=== PATIENT | female | born 2000 | race Caucasian/White ===

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

== ENCOUNTER 2019-09-26 14:01 | Emergency (ER) | payer MEDICAID ==
[2019-09-26 14:22] VITALS: BP 112/45; PULSE 80
--- NOTE | 2019-09-26 14:24 | EDM.PDOC ---
<Estefania Clifford - Last Filed: 09/26/19 14:24> ED HPI GENERAL MEDICAL PROBLEM - General Chief Complaint: Neck Problem Stated Complaint: KNOT BEHIND HEAD Time Seen by Provider: 09/26/19 14:24 neck Pain Score (Numeric/FACES): 8 - Related Data Allergies Allergy/AdvReac Type Severity Reaction Status Date / Time No Known Allergies Allergy Verified 10/09/16 22:52 Home Meds: Home Meds Etonogestrel [Nexplanon] 09/26/19 [History] Past Medical History HEENT History: Reports: None Cardiovascular History: Reports: None Respiratory History: Reports: None Gastrointestinal History: Reports: None Genitourinary History: Reports: None [employer] RO[employer] History: Reports: None Musculoskeletal History: Reports: None Neurological History: Reports: None Psychiatric History: Reports: None Endocrine/Metabolic History: Reports: None Hematologic History: Reports: None Immunologic History: Reports: None Oncologic (Cancer) History: Reports: None Dermatologic History: Reports: None - Infectious Disease History Infectious Disease History: Reports: None Social & Family History - Family History Family Medical History: Noncontributory - Caffeine Use Caffeine Use: Reports: None Course - Vital Signs Last Recorded V/S: Last Vital Signs Temp 97.6 F 09/26/19 14:19 Pulse 80 09/26/19 14:19 Resp 15 09/26/19 14:19 BP 112/45 L 09/26/19 14:19 Pulse Ox 99 09/26/19 14:19 Departure - Departure Disposition: Home, Self-Care 01 Clinical Impression: Muscle spasm - Discharge Information Referrals: Mell Mathis, CORN HUSK BALER [Primary Care Provider] - Forms: ED Department Discharge Additional Instructions: Patient is prescribed Return if symptoms persist or worsen Follow-up with primary care in 2 weeks sooner as needed [facility] - Primary Care [address] [place] [address] The following information is given to patients seen in the emergency department who are being discharged to home. This information is to outline your options for follow-up care. We provide all patients seen in our emergency department with a follow-up referral. The need for follow-up, as well as the timing and circumstances, are variable depending upon the specifics of your emergency department visit. If you don't have a primary care physician on staff, we will provide you with a referral. We always advise you to contact your personal physician following an emergency department visit to inform them of the circumstance of the visit and for follow-up with them and/or the need for any referrals to a consulting specialist. The emergency department will also refer you to a specialist when appropriate. This referral assures that you have the opportunity for follow-up care with a specialist. All of these measure are taken in an effort to provide you with optimal care, which includes your follow-up. Under all circumstances we always encourage you to contact your private physician who remains a resource for coordinating your care. When calling for follow-up care, please make the office aware that this follow-up is from your recent emergency room visit. If for any reason you are refused follow-up, please contact the [facility] emergency department at and asked to speak to the emergency department charge nurse. Sepsis Event Note - Evaluation Sepsis Screening Result: No Definite Risk - Focused Exam Vital Signs: Vital Signs Temp Pulse Resp BP Pulse Ox 09/26/19 14:19 97.6 F 80 15 112/45 L 99 Date Exam was Performed: 09/26/19 Time Exam was Performed: 14:24 <Darrin Isaacs - Last Filed: 09/26/19 14:34> ED HPI GENERAL MEDICAL PROBLEM - General Source of Information: Reports: Patient - History of Present Illness INITIAL COMMENTS - FREE TEXT/NARRATIVE: HISTORY AND PHYSICAL: History of present illness: [Presents with muscle pain in the neck in a left trapezius distribution extending from occipital area down to the shoulder can reproduce symptoms with palpation in this distribution as well as I do appreciate spasm pain is worsened by vertical movement as well as turning to the left on the horizontal plane rates pain 5 out of 10 nonradiating pain is been present for 2 months she has not tried any treatments or been seen by her primary at this point, as lesion is appreciated there is no redness warmth or open lesion no bruising, febrile point tenderness on cervical spine I did talk to her about possible trigger point injection with primary or referral for such and possibility of physical therapy at this point as it is been 2 months we will start with anti-inflammatories and a muscle relaxant and redirect from there] Denies any injury or trauma this began insidiously Review of systems: As per history of present illness and below otherwise all systems reviewed and negative. Past medical history: As per history of present illness and as reviewed below otherwise noncontributory. Surgical history: As per history of present illness and as reviewed below otherwise noncontributory. Social history: No reported history of drug or alcohol abuse. Family history: As per history of present illness and as reviewed below otherwise noncontributory. Physical exam: HEENT: Atraumatic, normocephalic, pupils reactive, negative for conjunctival pallor or scleral icterus, mucous membranes moist, throat clear, neck supple, nontender, trachea midline. Lungs: Clear to auscultation, breath sounds equal bilaterally, chest nontender. Heart: S1S2, regular, negative for clicks, rubs, or JVD. Abdomen: Soft, nondistended, nontender. Negative for masses or hepatosplenomegaly. Negative for costovertebral tenderness. Pelvis: Stable nontender. Genitourinary: Deferred. Rectal: Deferred. Extremities: Atraumatic, negative for cords or calf pain. Neurovascular unremarkable. Neuro: Awake, alert, oriented. Cranial nerves II through XII unremarkable. Cerebellum unremarkable. Motor and sensory unremarkable throughout. Exam nonfocal. Skeletal/musculo-HPI otherwise unremarkable Diagnostics: [clinical Therapeutics: [toradol Flexeril Follow-up with primary care Consider trigger point injection and/or physical therapy ] Heat whichever gains most benefit IcyHot patches may benefit Impression: [Muscle spasm left trapezius distribution] Definitive disposition and diagnosis as appropriate pending reevaluation and review of above. ED ROS GENERAL - Review of Systems Review Of Systems: See Below ED EXAM, UPPER BACK/NECK PAIN - Physical Exam Exam: See Below Departure - Departure Time of Disposition: 14:33 Condition: Good Sepsis Event Note - Focused Exam Date Exam was Performed: 09/26/19 Time Exam was Performed: 14:30
== END 2019-09-26 14:53 | disposition home or self-care (01) ==
LOC: MW.ED 14:01
DX: M62.838 Other muscle spasm (principal)
CPT/HCPCS: 99283